=== PATIENT | female | born 1960 | race Caucasian/White ===

== ENCOUNTER 2020-10-10 11:10 | Day surgery (SDC) | payer OTHER, SELFPAY ==
--- NOTE | 2020-10-05 14:10 | EKG12_ITS ---
Test Reason : PRE-OP Blood Pressure : / mmHG Vent. Rate : 085 BPM Atrial Rate : 085 BPM P-R Int : 154 ms QRS Dur : 074 ms QT Int : 384 ms P-R-T Axes : 058 -03 084 degrees QTc Int : 456 ms Normal sinus rhythm Nonspecific ST abnormality Confirmed by NATHAN CHAVEZ, SHMUEL ([id number]), production editor KAVON LEVINE ([id number]) on 10/06/2020 11:10:13 AM Referred By: Mika Pelaez Confirmed By:SHMUEL EVANS MD
--- NOTE | 2020-10-05 14:20 | RAD_ITS ---
STUDY: X-RAY CHEST REASON FOR EXAM: Female, 59 years old. Pre-op for pelvic surgery TECHNIQUE: PA and lateral views of the chest. COMPARISON: None. FINDINGS: There are interstitial changes of the lungs. There is no demonstrated pleural abnormality. Normal size heart. Normal mediastinum and thierry. Normal visualized pulmonary arteries. Normal visualized aortic arch and descending thoracic aorta. Normal visualized thoracic spine. Normal visualized ribs, clavicles, and shoulders. There is no demonstrated abnormality of the visualized soft tissue structures of the upper abdomen. RAD/Chest PA and Lateral IMPRESSION: Chronic interstitial changes, no superimposed acute pulmonary process Electronically Signed: Misbah Robertson MD at 14:31 EST , Service support ,
[2020-10-05 15:34] LABS: Hematocrit 39.9 % (37-47); Hemoglobin 12.9 g/dL (12.0-15.0); Mean Corp Hgb Conc 32.3 g/dL (32-36); Mean Corpuscular Hgb 31.9 pg (27.0-32.0); Mean Corpuscular Volume 98.5 fL (81-99); Mean Platelet Vol. 9.9 fl (6.2-12.0); Platelet Count 291 K/mm3 (150-450); RBC Distribution Width CV 11.7 % (11.6-14.6); RBC Distribution Width SD 42.5 fl (35.1-43.9); Red Blood Count 4.05 M/mm3 (4.2-5.4); White Blood Count 4.9 K/mm3 (4.4-11.0)
[2020-10-05 15:43] LABS: Prothrombin Time (Protime)PT. 12.8 SECONDS (11.7-14.9)
[2020-10-05 15:44] LABS: Partial Thromboplast Time 33.7 Seconds (24.1-36.2)
[2020-10-05 16:41] LABS: AST(SGOT) 46 U/L (15-37); Alanine Aminotransfer ALT/SGPT 48 U/L (13-56); Albumin, Serum 3.7 g/dL (3.2-5.0); Alkaline Phosphatase 95 U/L (45-117); Anion Gap 9 (5-15); BUN 18 mg/dL (7-18); BUN/Creat Ratio 21.6 RATIO (10-20); Calcium,Total 9.2 mg/dL (8.5-10.1); Chloride 105 mmol/L (98-107); Creatinine, Serum 0.83 mg/dL (0.55-1.02); EST Glomerular Filtration Rate 74 mL/min (>60); Est Glom Filt Rate - Afr Amer 90 mL/min (>60); Globulin 3.8 g/dL (2.2-4.2); Glucose 84 mg/dL (74-106); Potassium 3.6 mmol/L (3.5-5.1); Protein, Total 7.5 g/dL (6.4-8.2); Sodium Level 140 mmol/L (136-145)
--- NOTE | 2020-10-09 19:03 | PCM.HP.BLA ---
History and Physical Date of Admission: 10/10/20 Surgical History and Physical Shae Wilde, a 59 year old female 3 0 0 0 3, presents for Vaginal Hysterectomy and AP Repair on October 10, 2020 at 1:15. -- Prolapse Symptoms; Menorrhagia; Prior Endometrial Ablation -- Pt referred per Dr Irwin Tafoya for menorrhagia. Sts she has had extremely heavy periods for past 3yrs, but they are becoming more frequent and heavier past 3mos. Bulge from vagina which began months ago. Shae claims it started gradually and has been present constantly for several months. It occurs all the time. Shae characterizes the quality low back pain. Severity is moderate; It is aggravated by any activity. It is relieved by lying down. MEDICATIONS HISTORY: Current medications prescribed by our practice are: 1. Estrace 0.01% (0.1 mg/gram) vaginal cream, one half gram per vagina at hs for 2 weeks then twice weekly Patient is also takin. lisinopril 10 mg tablet, 1 qd ALLERGIES: NKDA Infections - Chicken pox childhood Illnesses - HTN,Anxiety Accidents - no injuries of consequence Hospitalizations - see surgery Review of Systems: GENERAL - Denies fever, or chills SKIN - Denies skin changes EYES - Denies visual changes EARS - Denies difficulty hearing NOSE - Denies nasal congestion or bleeding MOUTH - Denies sore throat or difficulty swallowing NECK - Denies pain or swelling RESPIRATORY - Denies shortness of breath or wheezing CARDIOVASCULAR - Denies palpitations or chest pain GASTROINTESTINAL - Denies nausea, vomiting, diarrhea, constipation GENITOURINARY - Denies dysuria, frequency of urination, incontinence of urine MUSCULOSKELETAL - Denies joint or muscle pain NEUROLOGICAL - Denies localized numbness or weakness PSYCHIATRIC - Denies depression or anxiety ENDOCRINE - Denies heat or cold intolerance, weight loss or gain HEMATO-IMMUNOLOGIC - Denies excessive bleeding with cuts SOCIAL HISTORY: Alcohol Use - drinks frequently Smoking - Smokes--advised to quit 1-2 ppd Diet - no special diet Lifestyle - moderate stress lifestyle Exercise - minimal Seat Belt Use - always Employer - unemployed Illicit Drug Use - in high school Sexual Activity - Hours Worked - none Spouse-Sig Other Name - Mika Spouse-Sig Other Occupation - [employer] Children Name(s) - Carmel Skinner John Control - Prior Tubal FAMILY HISTORY: Family history of no sig. family hx.. MENSTRUAL HISTORY: LMP Known?- Definite Amount/Duration - 9 days, Regularity - Regular, Frequency - variable days, LMP - 06/09/08, Age Onset Menarche - 15 PAST PREGNANCIES: Total Pregnancies - 3; Full Term Pregnancies - 3; Premature - 0; Abortions, Induced - 0; Abortions, Spontaneous - 0; Ectopics - 0; Multiple Births - 0; Living Children - 3 SURGICAL HISTORY: 1. Hand sx 2. Tubal 1985 PHYSICAL EXAM BP- 130/86 Sitting, Right arm, regular cuff Weight- 155.47719 lbs Height- 64 inch BMI:26.66 CONSTITUTIONAL - NAD, well nourished, and well developed SKIN - No rash, lesions, or ulcers HEENT - Normocephalic, PERRLA, EOMI NECK - No nodes, no nuchal rigidity and thyroid normal size and texture LYMPH NODES - Palpation of lymph nodes in neck and groins within normal limits LUNGS - CTA x2 without wheezes, crackles or rales CARDIAC - Regular rate and rhythm without rubs, murmurs, or gallops ABDOMEN - Without hepatosplenomegaly, distention, masses, rebound, or guarding; normal bowel sounds; no hernias EXTREMITIES - No edema or calf tenderness NEUROLOGICAL - Cranial nerves II-XII grossly intact PSYCHIATRIC - A and O to time, place, person, mood and affect External Genital Vagina - non-tender without lesions Urethra/Urethral Meatus - non-tender Bladder - non-tender Vagina - loss of rugae, large cystocele, mild rectocele and cystocele 2-3 cm outside introitus with bearing down Cervix - without cervical motion tenderness and has normal size and features without evident lesions and protrudes to the introitus with bearing down Uterus - 5-6 cm in size, mobile and nontender Adnexa - clear without masses or tenderness ASSESSMENT/PLAN: 1. Cystocele Midline and Uterovaginal Prolapse Incomplete Discussed options for treatment including pessary use versus proceeding with surgical repair. Pt desires Vag Hyst and AP Repair. Dicsussed RBAs and all questions answered.
[2020-10-10] VITALS (10 sets, daily range): BP systolic 104–121; BP diastolic 69–89; PULSE 59–90; RESP 14–18; TEMP 35.8–36.6; O2SAT 94–100; BMI 27.0
[2020-10-10] MEDS: Lactated Ringers 1,000 ML 100 ML IV ×2 (12:16→14:16)
[2020-10-10] MEDS: Cefotetan 2 GM in 0.9% NS 100 ML IV (12:38)
--- NOTE | 2020-10-10 12:45 | HYST_PTH ---
PATIENT: DANAY HAUSER LOC: [facility] [place] U#:[id number] AGE/SX: 59/F ROOM: RE10/10/[address]: Dr. Mika Pelaez MD : 1960 BED: DIS: 10/11/2020 SPEC #: [id number] RECD: 10/10/20 14:20 STATUS: ARIA ASTORGA #: [id number] BROOK: 10/10/20 12:[address]: Mkia Pelaez DEPT: SURGICAL PATHOLOGY RECD BY: Alisha Sweet ENTERED: 10/11/20 07:47 SP TYPE: HYSTERECT OTHR DR: Dr. Carlos Tafoya MD Tissues: Uterus, NOS Procedures: Surgery Specimen Level IV HEADER OPERATION: Hysterectomy, vaginal, A & P repair PRE-OP DIAGNOSIS: Cystocele midline and uterovaginal prolapse incomplete TISSUE SUBMITTED: Uterus and cervix MICROSCOPIC DIAGNOSIS Uterus, hysterectomy: Cervix - squamous metaplasia, nabothian cysts and mild chronic inflammation. Endometrium - inactive endometrium with focal cystic change. Myometrium - vessel wall calcifications. AM:lily 10/12/2020 MICROSCOPIC DESCRIPTION Slides are reviewed. GROSS DESCRIPTION Received in fixative is one container labeled with the patient's name and designated uterus and cervix. The specimen consists of a uterus with attached cervix without fallopian tubes and ovaries measuring 7.5 x 2.5 x 3 cm and weighing 33.4 gm. The ectocervix is grossly unremarkable. The endocervical canal measures 3 cm in length and is grossly unremarkable. The elongated endometrial cavity measures 2 x 2 x 1.8 cm. The endometrium is light pink-gunderson and measures up to 0.1 cm in thickness. Dehorner sections are submitted in four cassettes as follows: 1 - anterior cervix, 2 - posterior cervix, 3 - anterior uterine wall, 4 - posterior uterine wall. / AM:lily 10/11/20 TC:5 CPT: 80372
--- NOTE | 2020-10-10 14:32 | PCM.OPRPT ---
Report of Operation Date of Procedure: 10/10/20 Pre-Operative Diagnosis: Cystocele, Rectocele, Uterovaginal Prolapse Post-Operative Diagnosis: Cystocele, Rectocele, Uterovaginal Prolapse Surgery/Procedure Performed:: Vaginal Hysterectomy and Anterior Posterior Repair Description of Surgical Findings:: 6 cm uterus with cystocele that protruded 2 cm outside the introitus, cervix which protruded to the introitus and moderate rectocele grain merchandiser: Shaina Walls grain merchandiser: Reyes Schneider Type of Anesthesia:: General - Endotracheal Anesthesiologist: Theodore Nunez Specimen's removed: Uterus and vaginal mucosa Drains: Aguilar to straight drain Estimated Blood Loss (mL): 100 cc Fluids Replaced: Crystalloids Description of Procedure: Surgeon: Mika Pelaez MD, FACOG Indications: This is a 59-year-old patient who is been having problems with prolapse. Conservative measures have not been helpful and she declines a pessary. Given this the patient desires that we proceed the above procedure. She has been counseled regarding the risk and indications of this procedure including the possibility of bleeding, infection, and injury to surrounding structures such as bowel bladder. All questions were answered. Procedure: Patient was taken to the operating room where after induction of general anesthesia she was placed in the dorsal lithotomy position and prepped and draped in the usual sterile fashion. A Aguilar catheter was placed. Anterior cervix was grasped with a tenaculum and anterior cervix circumscribed with cautery on a setting of 35 W coagulation. Anterior vaginal mucosa was undermined and anterior peritoneum was entered. The posterior aspect of the cervix was circumscribed with a knife and posterior peritoneum easily entered. Progressive bites were taken on either side of the uterine cervix and each pedicle ligated with 0 Vicryl suture. Superior pedicles were ligated ?2 with 0 Vicryl suture and sidewall pedicles were examined and oversewn where necessary with [id number] 0 Vicryl suture to achieve hemostasis. Posterior vaginal cuff was oversewn with running locked 0 Vicryl suture. Hemostasis was noted and peritoneum was closed in a pursestring fashion incorporating superior pedicles into the stitch. Hemostasis was noted. Attention was turned toward the anterior repair portion of the procedure. Anterior vaginal mucosa was undermined and divided and then imbricated toward the midline with interrupted 0 Vicryl sutures. Vaginal mucosa was trimmed and then closed with interrupted 2-0 chromic suture. Vaginal cuff was then closed front to back with interrupted [id number] 0 Vicryl suture. Hemostasis was noted. Attention was turned toward the posterior repair portion of the procedure. Remnants of the hymenal ring were grasped with Allises and a V-shaped incision was made in the perineum. Rectovaginal mucosa was then undermined divided and then imbricated toward the midline with interrupted 0 Vicryl suture. Vaginal mucosa was trimmed and then closed with running locked 2-0 chromic suture. Remnants of the bulbocavernosus muscles were identified and brought toward the midline with a single [id number] 0 Vicryl suture and perineum was closed in the usual fashion with running and subcuticular, and [id number] 2-0 chromic suture. Hemostasis was noted. Aguilar catheter was again opened and clear yellow urine was noted. Vagina was packed with iodoform tape. Patient tolerated the procedure well was taken to recovery room in satisfactory condition; sponge instrument and needle counts were all reportedly correct. Estimated blood loss for the case was 100 cc. Cefotan 2 g IV was given prior to beginning the operative procedure. There were no apparent complications of the surgery. Specimen to pathology was uterus and vaginal mucosa. Grafts/Implants Used: None - Complications None - Admit VTE Documentation VTE Present on Admission: Yes VTE Mechan Device Prophylaxis: SCD's VTE Pharm Prophylaxis ordered?: Yes
--- NOTE | 2020-10-10 14:38 | DCINST_ITS ---
Discharge Diet: No Restrictions Discharge Activity: Return to Normal Activity, May Not Drive - while taking narcotic pain medications., May Shower, May Take a Tub Bath May resume sexual activity in: 6-8 weeks Call your doctor if your incision/area has: Continuous Slow Oozing, Sudden Inc reased Bleeding, Increased Pain/ Swelling, Increased Redness, Foul Smelling Discharge Call your doctor if you observe: Fever of 101 or Higher, Inability to urinate, Inability to have a bowel movement, Using more than one pad per hour Additional Instructions: Nothing in the vagina for 6 weeks please; no lifting more than 20-25 lbs for 6 weeks. Use Ibuprophen 800 mg orally every 8 hours as needed for pain. Can also add Tylenol 1000 mg every 8 hours if needed for pain. If Ibuprophen and Tylenol are not effective then use the Oxycodone but keep in mind it can cause serious constipation issues. Drink lots of water. Call if bleeding more than a pad per hour. Use the colace as constipation is a big issue after this type of surgery. Steps and walking are OK. Activity is encouraged but do not over do it !! Allergies/Adverse Reactions: Allergies No Known Allergies Allergy (Verified 10/03/20 12:57) Medications to take at Discharge ALPRAZolam [Xanax] 0.5 mg PO BID PRN PRN 10/03/20 Amlodipine [Norvasc] 10 mg PO DAILY 10/03/20 Estradiol [Estrace Vaginal Cream] 1 dose VAGINAL DAILY 10/03/20 Docusate Sodium [Colace] 100 mg PO BID PRN PRN #60 cap 10/10/20 Oxycodone [Oxyir] 5 mg PO Q6H PRN PRN 7 Days #10 tablet 10/10/20 The following prescriptions were given: Docusate Sodium [Colace] 100 mg PO BID PRN PRN #60 cap PRN Reason: Constipation Transmission Status: Pending to [id number] Oxycodone [Oxyir] 5 mg PO Q6H PRN PRN 7 Days #10 tablet PRN Reason: Pain Score 6-10 [facility] Primary Care Physician: Carlos Tafoya MD [Primary Care Provider] - Test Results: Test results from this visit will be discussed in further detail at your follow- up appointment, if applicable. Please Follow Up With: Mika Pelaez MD When: 2 to 3 weeks
[2020-10-10] MEDS: Lactated Ringers 1,000 ML 150 ML IV ×2 (16:38→22:49)
[2020-10-10] MEDS: oxyCODONE 5 MG Tablet PO (16:39)
[2020-10-10] MEDS: ALPRAZolam 0.5 MG Tablet PO (16:39)
[2020-10-10] MEDS: Acetaminophen 500 MG Tablet 1000 MG PO ×2 (16:43→23:03)
[2020-10-10] MEDS: 0.9% Saline Lock 10 ML Syringe IV (20:02)
[2020-10-10] MEDS: Ketorolac 30 MG/ML Syringe IV (20:02)
[2020-10-10] MEDS: Enoxaparin 30 MG/0.3 ML Syringe SC (20:02)
[2020-10-10] MEDS: Docusate Sodium 100 MG Capsule PO (23:03)
[2020-10-11 02:28] VITALS: BP 110/79; PULSE 96; RESP 18; TEMP 36.8; O2SAT 96
[2020-10-11] MEDS: Ketorolac 30 MG/ML Syringe IV ×2 (02:34→09:51)
[2020-10-11] MEDS: 0.9% Saline Lock 10 ML Syringe IV (02:34)
[2020-10-11 05:20] LABS: Hematocrit 38.4 % (37-47); Hemoglobin 12.4 g/dL (12.0-15.0); Mean Corp Hgb Conc 32.3 g/dL (32-36); Mean Corpuscular Volume 99.2 fL (81-99); Mean Platelet Vol. 9.9 fl (6.2-12.0); Platelet Count 291 K/mm3 (150-450); RBC Distribution Width CV 11.5 % (11.6-14.6); RBC Distribution Width SD 42.2 fl (35.1-43.9); Red Blood Count 3.87 M/mm3 (4.2-5.4); White Blood Count 6.8 K/mm3 (4.4-11.0)
[2020-10-11 05:35] LABS: Creatinine, Serum 0.73 mg/dL (0.55-1.02); EST Glomerular Filtration Rate 87 mL/min (>60); Est Glom Filt Rate - Afr Amer 105 mL/min (>60); Estimated Creatinine Clearance 71.65 ml/min
[2020-10-11] MEDS: Acetaminophen 500 MG Tablet 1000 MG PO (05:44)
[2020-10-11 07:12] VITALS: O2SAT 95
[2020-10-11 08:30] VITALS: BP 105/72; PULSE 86; RESP 18; TEMP 36.9; O2SAT 96
--- NOTE | 2020-10-11 09:48 | PN.OBGYN_ITS ---
Subjective: Patient without complaints. Minimal pain or vaginal bleeding. Denies flatus. Aguilar catheter remains in place. Vaginal pack removed with minimal bleeding noted. Objective: Minimal bleeding on vaginal pack. Good urine output. Hemoglobin and creatinines okay. - Physical Exam Vitals/I&O's: Vital Signs Temp Pulse Resp BP Pulse Ox 98.5 F 86 18 105/72 96 10/11/20 08:30 10/11/20 08:30 10/11/20 08:30 10/11/20 08:30 10/11/20 08:30 Oxygen Flow Rate (L/min) 6 Oxygen Delivery Method Room Air Weight: 157 lb 6.561 oz Body Mass Index (BMI) 27.0 Intake and Output for Last 24 Hours 10/09/20 10/10/20 10/11/20 23:59 23:59 23:59 Intake Total 2700.83 / 2700.83 785 / 785 Output Total 900 / 900 400 / 400 Balance 1800.83 / 1800.83 385 / 385 Laboratory Results 10/11/20 05:02: WBC 6.8, RBC 3.87 L, Hgb 12.4, Hct 38.4, MCV 99.2 H, MCH 32.0, MCHC 32.3, RDW Std Deviation 42.2, RDW Coeff of Prabhakar 11.5 L, Plt Count 291, MPV 9.9 10/11/20 05:02: Creatinine 0.73, Estim Creat Clear Calc 71.65, Est GFR (MDRD) Af Amer 105, Est GFR (MDRD) Non-Af 87 Current Medications Acetaminophen (Acetaminophen 500 Mg Tablet) 1,000 mg PO Q6 [facility] Last Admin: 10/11/20 05:44 Dose: 1,000 mg Documented by: Alprazolam (Alprazolam 0.5 Mg Tablet) 0.5 mg PO BID PRN PRN PRN Reason: ANXIETY Last Admin: 10/10/20 16:39 Dose: 0.5 mg Documented by: Amlodipine Besylate (Amlodipine 10 Mg Tablet) 10 mg PO DAILY [facility] Docusate Sodium (Docusate Sodium 100 Mg Capsule) 100 mg PO BID [facility] Last Admin: 10/10/20 23:03 Dose: 100 mg Documented by: Influenza Virus Vaccine Quadrival (Influenza Vaccine (6mos+)/Pf 0.5 Ml Syringe) 0.5 ml IM .ONCE ONE Stop: 10/11/20 10:01 Ketorolac Tromethamine (Ketorolac 30 Mg/Ml Syringe) 30 mg IV Q6H [facility] Stop: 10/12/20 03:01 Last Admin: 10/11/20 02:34 Dose: 30 mg Documented by: Magnesium Chloride (Magnesium Chloride 64 Mg Delay Rel.Tablet) 128 mg PO DAILY PRN PRN PRN Reason: Constipation Nutritional Formula (Lactose Free) (Ensure Enlive 120 Ml Liquid) 120 ml PO TIDCM [facility] Last Admin: 10/11/20 08:46 Dose: 120 ml Documented by: Ondansetron HCl (Ondansetron Odt 4 Mg Tablet) 4 mg PO Q6H PRN PRN PRN Reason: NAUSEA Oxycodone HCl (Oxycodone 5 Mg Tablet) 5 mg PO Q6H PRN PRN PRN Reason: Pain Score 6-10 Last Admin: 10/10/20 16:39 Dose: 5 mg Documented by: Sodium Chloride (0.9% Saline Lock 10 Ml Syringe) 10 - 40 ml IV UD PRN PRN Reason: SALINE FLUSH Last Admin: 10/11/20 02:34 Dose: 10 ml Documented by: Medical Necessity - Tobacco Use Smoking Status: Current every day smoker Tobacco Use: Cigarettes Assessment/Plan Doing well postoperative day #1 status post vaginal hysterectomy and anterior posterior repair. Will discharge to home later today when able to void on own.
[2020-10-11] MEDS: amLODIPine 10 MG Tablet PO (09:51)
[2020-10-11] MEDS: Docusate Sodium 100 MG Capsule PO (09:51)
[2020-10-11 11:16] VITALS: BP 105/72; PULSE 70; RESP 18; TEMP 36.9; O2SAT 96
--- NOTE | 2020-10-11 12:06 | PHA.DC.MC ---
Pharmacy Service has performed discharge medication reconciliation and counseling for this patient. 1. DOCUSATE 100MG PO BID PRN CONSTIPATION 2. OXYCODONE 5MG PO Q6H PRN PAIN 6-10 The patient's discharge medication list was reviewed for discrepancies and discrepancies were resolved. Home Medications ALPRAZolam [Xanax] 0.5 mg PO BID PRN PRN 10/03/20 Amlodipine [Norvasc] 10 mg PO DAILY 10/03/20 Estradiol [Estrace Vaginal Cream] 1 dose VAGINAL DAILY 10/03/20 Docusate Sodium [Colace] 100 mg PO BID PRN PRN #60 cap 10/10/20 Oxycodone [Oxyir] 5 mg PO Q6H PRN PRN 7 Days #10 tab 10/10/20 The patient was counseled on the following discharge medications and changes in medications for homegoing were reviewed. The Reason for Use, instructions for use, and potential side effects were reviewed for all new medications. The patient's questions regarding all of their medications were answered. The patient was able to verbally demonstrate an understanding of their discharge medications.
== END 2020-10-11 11:13 | disposition home or self-care (01) ==
LOC: SDC 11:11 → AC 12:10 → MS3 10-11 08:33
PROVIDERS: PCP Family Medicine; Referring Provider Obstetrics & Gynecology; Visit Provider Obstetrics & Gynecology
PROC: (CPT 58260; principal; 2020-10-10 12:25)
DX: N81.4 Uterovaginal prolapse, unspecified (principal); Z20.828 Contact with and (suspected) exposure to other viral communicable diseases; Z79.899 Other long term (current) drug therapy; I10 Essential (primary) hypertension; F41.9 Anxiety disorder, unspecified; F17.210 Nicotine dependence, cigarettes, uncomplicated; G25.81 Restless legs syndrome
CPT/HCPCS: 00940; 57260; 58260; 36415; 71046; 80053; 82565; 85027; 85610; 85730; 86850; 86900; 86901; 87426; 88305; 88307; 93005; 94762; 99251; 99406; C9803; J7120; A4216; G0463; J2405

== ENCOUNTER 2021-10-26 10:39 | Day surgery (SDC) | payer OTHER, SELFPAY ==
[2021-10-26] VITALS (11 sets, daily range): BP systolic 106–119; BP diastolic 76–86; PULSE 83–94; RESP 16; TEMP 36.3–37.1; O2SAT 90–98; BMI 27.3
[2021-10-26] MEDS: Lactated Ringers 1,000 ML 15 ML IV (11:42)
[2021-10-26] MEDS: Cefazolin 1 GM/50 ML BAG IV (14:07)
--- NOTE | 2021-10-26 14:15 | RAD_ITS ---
History: Fracture fixation Left wrist 2 views: Findings: Dorsal surgical plate in place across the fracture of the distal radius. Bony structures are well aligned. No subluxation deformity. IMPRESSION: As above. at 1530 Reported and signed by: Yoshi Giron MD Electronically Signed: Yoshi Giron MD at 15:29 EDT , RAD/Wrist 2 Views
--- NOTE | 2021-10-26 15:17 | PCM.DC ---
Discharge Instructions Follow Up Care Test Results: Test results from this visit will be discussed in further detail at your follow-up appointment, if applicable. Discharge Plan Admission Attending Provider: Levi Eller Primary Care Provider: Jd Haynes Instructions Additional Instructions / Restrictions: Follow preprinted instructions from your surgeons office. Discharge Orders/Prescriptions Prescriptions: Continued alprazolam 0.5 MG tablet 0.5 mg PO BID PRN PRN (Reason: Anxiety) RF: 0 amlodipine 10 MG tablet 10 mg PO DAILY RF: 0 docusate sodium 100 MG capsule 100 mg PO BID PRN PRN (Reason: Constipation) Qty: 60 RF: 1 oxycodone-acetaminophen 5-325 mg tablet 1 - 2 tab PO PRN PRN (Reason: Pain) 7 Days Qty: 28 RF: 0 Referrals / Follow Up: Jd Haynes MD [Primary Care Provider] - Disposition Disposition (needs filled in before D/C Order can be placed): Home, Self Care
--- NOTE | 2021-10-26 16:14 | PCM.OPRPT ---
Report of Operation Date of Procedure: 10/26/21 Description of Surgical Findings:: Preoperative diagnosis: Left distal radius fracture, intra-articular 3 parts Postoperative diagnosis: Left distal radius fracture, intra-articular 3 parts Procedure: Left distal radius fracture open reduction internal fixation intra-articular fracture, 3 parts Surgeon: Levi Eller DO Anesthesia: General LMA with axillary block Anesthesiologist: Dr. Leonard Complications: None apparent Drains: None Estimated blood loss: 25 cc Urinary output: None recorded IV fluids: Per anesthesia record Specimens: None Surgical implants: Arthrex narrow left distal radius volar locking plate 3 hole Surgical indications: This is a 60-year-old [id number] female who sustained a fall on an outstretched left wrist over tree limbs in her yard while she was working outside on October 16, 2021. She was brought to [facility] emergency department where x-rays revealed a displaced left distal radius fracture with a ulnar styloid avulsion fracture. The emergency room physician performed a closed reduction under hematoma block in the emergency department. Pre and post reduction films revealed significant dorsal angulation, approximately 30 degrees. Patient was seen at [facility] [place] on 10/18/2021. I reviewed the patient's case at that time. I recommended surgical intervention to the degree of displacement and the patient's age and function. The risk, benefits, terms the procedure reviewed with patient at length. She agreed to proceed. Risks included but were not limited to bleeding, infection, loss of life or limb, need for additional surgery, persistent pain, nonhealing bone or wounds, neurovascular injury, DVT or PE. Patient agreed to proceed after reviewing the risks. I examined the patient personally in the preoperative holding area the day of surgery. Patient was neurovascular intact and skin was intact circumferentially. Description of procedure: Patient was seen in preoperative holding area. She was identified by name, medical record number, date of . The operative extremity was marked with a surgical marker. We confirmed informed consent with the patient and all questions were answered to her satisfaction. Dr. Leonard then administered an axillary block for intraoperative and postoperative analgesia in the preoperative holding area. At time of her procedure, patient was brought to the operative suite and positioned supine on a standard operating table. All bony prominences were well-padded. General anesthesia was administered. After adequate anesthesia, a well-padded pneumatic tourniquet was applied to the upper arm of the operative extremity. We then spun the bed 90 degrees. We prepped and draped the operative extremity in a normal, sterile orthopedic fashion. We then performed a timeout with all parties in attendance in agreement the side, site, and operation be performed. No concerns were voiced and we elected to proceed. 1 g Ancef was administered for antibiotic prophylaxis prior to the incision by anesthesia staff. I first exsanguinated the operative extremity with an Esmarch bandage. Tourniquet was inflated to 250 mmHg. Tourniquet remained up for 32 minutes. Esmarch was removed. I planned a standard FCR approach over the flexor carpi radialis tendon along the volar wrist. Skin was sharply incised with a 15 blade scalpel down to the level of the tendon sheath. The FCR tendon sheath was identified and split longitudinally in line with the incision. I then retracted the FCR tendon ulnarly, split the floor of the tendon sheath in line with the incision. The flexor pollicis longus muscle belly was then encountered and retracted ulnarly. The pronator quadratus was then encountered. A self-retaining retractor was placed deep. I performed an L-shaped tenotomy of the pronator quadratus and subperiosteally elevated it ulnarly. This exposed the fracture site. The fracture was significantly dorsally angulated. There is an intra-articular split traversing the scaphoid facet into the radial styloid. Axial traction and volar translation of the carpus anatomically reduce these fractures. I then placed a percutaneous K wire through the radial styloid to hold the reduction. Reduction was confirmed on orthogonal fluoroscopy. I then selected a narrow volar locking plate from [employer]. I provisionally pinned this in place and alignment of the hardware was confirmed on fluoroscopy. I then placed a bicortical cortical screw through the oblong hole of the shaft portion of the plate. I then applied a volar translation of the carpus to reduce the distal cluster to the plate. I then placed unicortical locking screws through the distal cluster. I utilized a variable angle guide under fluoroscopic guidance to place 2 locking screws within the radial styloid. I then turned my attention proximally and placed an additional bicortical screw in the most proximal hole and a unicortical locking screw in the most distal shaft screw to avoid extensor tendon irritation. Final fluoroscopic images revealed an anatomically reduced distal radius with appropriately sized and positioned hardware. Tourniquet was then deflated. Hemostasis was achieved with Bovie cautery. Wound was copiously irrigated with normal saline solution. The pronator quadratus was allowed to lay over top of the plate. The dermis was reapproximated buried 3-0 Vicryl suture. Skin was finally reapproximated with interrupted horizontal mattress 4-0 nylon suture. Sterile compression dressing was applied over the wound. A well-padded volar fiberglass short arm splint was then placed. Patient was then safely extubated in the operative suite. She was transferred to a gurney and subsequently to PACU in stable condition. Intraoperative medications: 1 g Ancef IV prior to incision Need for skilled assistant business manager: Xin Mei PA-C was critical to the outcome of the case. During the course of the procedure the physician assistant business manager played a vital role. Her intimate knowledge of my steps in the procedure aided in safe and expedient completion of the procedure. The PA played a vital role in positioning particularly in obtaining the appropriate positioning. The PA was also vital in the retraction of soft tissues during the exposure and protecting vital structures, fracture reduction and hardware placement. She also played a vital role in closure and splint application with my direct supervision. Post Operative Plan: Weightbearing: Nonweightbearing operative extremity Antibiotics: Ancef 1 g x 1 dose preoperatively DVT Prophylaxis: 81 mg aspirin to start tomorrow twice daily Aguilar: None Dressing: Maintain splint, keep it clean dry and intact until follow-up X-Rays: 2 weeks postop in the office out of splint Pain Medication: Percocet prescription sent to [facility] Follow-up: 2 weeks post-operatively with me in the office
== END 2021-10-26 23:59 | disposition home or self-care (01) ==
LOC: SDC 10:41 → AC 10:43
PROVIDERS: PCP Family Medicine; Referring Provider Student in an Organized Health Care Education/Training Program; Visit Provider Student in an Organized Health Care Education/Training Program
PROC: (CPT 25609; principal; 2021-10-26 12:05)
DX: S52.552A Other extraarticular fracture of lower end of left radius, initial encounter for closed fracture (principal); S52.612A Displaced fracture of left ulna styloid process, initial encounter for closed fracture; I10 Essential (primary) hypertension; W18.09XA Striking against other object with subsequent fall, initial encounter; F41.9 Anxiety disorder, unspecified; F17.210 Nicotine dependence, cigarettes, uncomplicated; E66.3 Overweight; Z71.3 Dietary counseling and surveillance; Z68.27 Body mass index [BMI] 27.0-27.9, adult
CPT/HCPCS: 25609; 01830; 73100; 76000; 87426; C1713; J7120; J2405